=== PATIENT | female | born 1980 | race Caucasian/White ===

== ENCOUNTER 2020-12-10 11:03 | Emergency (ER) | payer SELFPAY ==
[~2020-12-10] VITALS: Ht 165.1 cm; Wt 63.6 kg
[2020-12-10 13:33] VITALS: BP 102/87
== END 2020-12-10 15:57 | disposition home or self-care (01) ==
LOC: ER 11:04
DX: T42.4X1A Poisoning by benzodiazepines, accidental (unintentional), initial encounter (principal); Y92.89 Other specified places as the place of occurrence of the external cause
CPT/HCPCS: 99283

== ENCOUNTER 2020-12-11 16:19 | Emergency (ER) | payer SELFPAY | END 2020-12-11 18:14 | disposition left against medical advice (07) | LOC: ER 16:20 | DX: Z00.00 Encounter for general adult medical examination without abnormal findings (principal); Z53.21 Procedure and treatment not carried out due to patient leaving prior to being seen by health care provider ==